=== PATIENT | male | born 1970 | race Caucasian/White ===

== ENCOUNTER 2019-02-25 21:35 | Emergency (ER) | payer MEDICAID ==
[2019-02-25] MEDS ORDERED: Albuterol/Ipratropium Neb 3 ML AERS HHN ONE ×2 (22:02→22:06)
--- NOTE | 2019-02-25 22:09 | ED Physician Chart ---
ED Chief Complaint/HPI - Patient Information Date Seen:: 02/25/19 Time Seen:: 21:50 Chief Complaint:: cough, wheezing and shortness of breath History of Present Illness:: Patient's had cough productive of clear sputum, wheezing and shortness of breath for 4 days. No vomiting or diarrhea. Temperature not taken. Patient gets some relief by going outside in the night air. About 1 year ago patient was prescribed an inhaler. Allergies:: Allergies Allergy/AdvReac Type Severity Reaction Status Date / Time No Known Allergies Allergy Verified 02/25/19 21:44 Vitals:: Vital Signs - 8 hr 02/25/19 21:35 Temp 98.6 F HR 108 RR 20 BP 152/89 O2 Sat % 96 Historian:: Patient Review:: Nurse's Note Reviewed ED Review of Systems - Review of Systems General/Constitutional: No fever, No chills Skin: No skin lesions Head: No headache Eyes: No loss of vision ENT: No earache, Nasal drainage Neck: No neck pain Cardio Vascular: No chest pain Pulmonary: SOB, Cough, Sputum, Wheezing GI: No nausea, No vomiting, No diarrhea G/U: No dysuria Musculoskeletal: No bone or joint pain Endocrine: No polyuria, No polydipsia Psychiatric: No prior psych history Hematopoietic: No bruising Allergic/Immuno: No urticaria Neurological: No syncope, No focal symptoms ED Past Medical History - Past Medical History Past Medical History: No significant medical hx Family History: None Social History: Non Smoker, No Alcohol, Other (formerly consumed alcohol) Surgical History: None Psychiatricy History: None Medication: None Family Medical History - Family Member Mother History Unknown: Yes ED Physical Exam - Physical Examination General/Constitutional: Awake, Well-developed, well-nourished, Alert Head: Atraumatic Eyes: Lids, conjuctiva normal Skin: Nl inspection, No rash ENMT: External ears, nose nl, TM canals nl, Nasal exam nl, Lips, teeth, gums nl , Oropharynx nl, Tonsils nl Neck: No nuchal rigidity Respiratory: Nl effort/Exclusion, Clear to Auscultation Other Respiratory comments:: 1.5 out of 4 inspiratory/expiratory wheezing Cardio Vascular: RRR, No murmur, gallop, rubs, NL S1 S2 GI: No tenderness/rebounding/guarding, No organomegaly, No hernia : No CVA tenderness Extremities: Normal digits & nails Neuro/Psych: No focal deficits Misc: No paraspinal tenderness ED Assessment - Assessment General Assessment: Patient felt better after the breathing treatment and auscultation of the chest revealed 1.5 out of 4 scattered inspiratory and expiratory wheezing and scattered rales ED Septic Shock - . Is Septic Shock (SBP<90, OR Lactate>4 mmol\L) present?: No - <6hrs of presentation: Vital Signs: Vital Signs - 8 hr 02/25/19 21:35 Temp 98.6 F HR 108 RR 20 BP 152/89 O2 Sat % 96 ED Reassessment (Disposition) - Reassessment Reassessment Condition:: Improved - Diagnosis Diagnosis:: Acute viral syndrome; reactive airway disease - Aftercare/Follow up Instructions Medication Prescribed:: Albuterol metered-dose inhaler to use 2 puffs every 4 hours as necessary - Patient Disposition Discharge/Transfer:: Home Condition at Disposition:: Stable, Improved
[2019-02-25 23:10] LABS: INF A SCREEN NEG FOR INF A; INF B SCREEN NEG FOR INF B
== END 2019-02-25 23:55 | disposition home or self-care (01) ==
LOC: ER 21:35
DX: J45.909 Unspecified asthma, uncomplicated (principal); B34.9 Viral infection, unspecified
CPT/HCPCS: 87804-TC; 94640; Z7502